=== PATIENT | male | born 1930 | race Caucasian/White ===

== ENCOUNTER 2016-10-24 09:24 | Inpatient (IN) | payer OTHER ==
[2016-10-24] VITALS (9 sets, daily range): BP systolic 112–183; BP diastolic 42–77
[~2016-10-24] VITALS: Ht 188 cm; Wt 92.0 kg
[~2016-10-24 09:24] MED LIST: ATENOLOL/CHLOR1 EAC1 PO; CILOSTAZOL100 MG PO; CO Q-10200 MG PO; LIPITOR40 MG PO; PLAVIX75 MG PO
[2016-10-24] MEDS ORDERED: FLOMAX0.4 MG PO (10:27)
[2016-10-24] MEDS ORDERED: HYDROCODON-ACE1 EAC7 PO (15:52)
[2016-10-24 16:58] LABS: METH RESISTANT S AUREUS PCR NEGATIVE (NEGATIVE)
[2016-10-24 17:00] LABS: PROBE CHECK PASS; SPECIMEN PROCESSING CONTROL PASS
[2016-10-25 09:00] VITALS: BP 141/66
== END 2016-10-25 12:18 | disposition home or self-care (01) | DRG 38 ==
LOC: 2SOUTH 09:24 → 4WEST 13:29 → 2SOUTH 13:35 → SDC 15:15 → EDSTATUS 15:15 → 4WEST 15:17 → 2SOUTH 15:18 → 4EAST 22:36
PROVIDERS: Surgery
PROC: 03CL0ZZ Extirpation of Matter from Left Internal Carotid Artery, Open Approach (ICD-10-PCS; principal; 2016-10-24)
DX: I65.22 Occlusion and stenosis of left carotid artery (principal); I73.9 Peripheral vascular disease, unspecified; I10 Essential (primary) hypertension; G45.9 Transient cerebral ischemic attack, unspecified; G45.3 Amaurosis fugax; E78.00 Pure hypercholesterolemia, unspecified; Z87.891 Personal history of nicotine dependence
CPT/HCPCS: 87641; 93005; C1768; J0131; J0360; J0690; J1170; J1644; J1650; J2250; J2720; J2795; J3010